=== PATIENT | female | born 1950 | race Caucasian/White ===

== ENCOUNTER → 2019-08-10 | Outpatient (CLI) | payer MEDICARE, OTHER | LOC: CARD 09:13 | PROVIDERS: ATTEND Allergy & Immunology | DX: R60.9 Edema, unspecified (principal) | CPT/HCPCS: 93306 ==

== ENCOUNTER 2021-08-19 13:07 | Emergency (ER) | payer MEDICARE, OTHER ==
[~2021-08-19] VITALS: Ht 167 cm; Wt 117.0 kg
--- NOTE | 2021-08-19 13:48 | ED Lower Extremity ---
General Chief Complaint: Lower Extremity Stated Complaint: FALL;R KNEE PAIN Nursing Triage Note: PT PRESENTS TO ED WITH COMPLAINTS OF R KNEE PAIN AFTER FALLING OUT OF BED YESTERDAY MORNING. Source: patient Exam Limitations: no limitations (KEVIN QUAN APRN) History of Present Illness Date Seen by Provider: Aug 19, 2021 Time Seen by Provider: 13:45 Initial Comments to ER by private vehicle with reports of posterior lateral right knee pain after she fell out of bed yesterday morning landing on the right knee. She has been able to bear weight minimally secondary to pain. Does not have a local physician. Onset: just prior to arrival Severity: moderate Pain/Injury Location: right knee Method of Injury: unknown Modifying Factors: Worse With Movement (KEVIN QUAN APRN) Allergies and Home Medications Patient Home Medication List Home Medication List Reviewed: Yes (KEVIN QUAN APRN) Hydrocodone/Acetaminophen (Hydrocodone-Acetamin 5-325 mg) 1 Each Tablet, 1 TAB PO Q4H PRN for PAIN-MODERATE (5-7) Prescribed by: KEVIN QUAN on 08/19/21 1431 Review of Systems Constitutional: see HPI EENTM: see HPI Respiratory: no symptoms reported Cardiovascular: no symptoms reported Genitourinary: no symptoms reported Musculoskeletal: see HPI Skin: no symptoms reported Psychiatric/Neurological: No Symptoms Reported (KEVIN QUAN APRN) Past Tkxhuxq-Erafyh-Wsunxd Hx Patient Social History Tobacco Use?: No Substance use?: No Alcohol Use?: No Pt feels they are or have been: No (KEVIN QUAN APRN) Immunizations Up To Date COVID19 Vaccine Orthodontic Band [employer]: [employer] (KEVIN QUAN APRN) Past Medical History Surgery/Hospitalization HX: PMH: HTN, DM-2, BREAST CA SX: STEM CELL TRANSPLANT, CERVICAL SPIN SX, MASTECTOMY, BREAST AUGMENTATION, L KNEE REPLACEMENT, R ARM SX. (KVEIN QUAN APRN) Physical Exam Vital Signs Vital Signs - First Documented 08/19/21 13:21 Temp 37.0 Pulse 73 Resp 18 B/P (MAP) 147/70 (95) Pulse Ox 94 (GIAN LEE MD) Vital Signs Capillary Refill : Less Than 3 Seconds (KEVIN QUAN APRN) Height, Weight, BMI Height: '" Weight: lbs. oz. kg; 41.00 BMI Method: General Appearance: WD/WN, no apparent distress HEENT: PERRL/EOMI, normal ENT inspection Neck: non-tender, full range of motion Cardiovascular: regular rate, rhythm, no murmur Respiratory: no respiratory distress, no accessory muscle use Gastrointestinal: normal bowel sounds, non tender, soft Hips: bilateral hip non-tender, bilateral hip normal inspection, bilateral hip normal range of motion Legs: bilateral leg non-tender, bilateral leg normal inspection, bilateral leg normal range of motion Knees: bilateral knee non-tender, bilateral knee normal inspection, bilateral knee normal range of motion; right knee other (Posterior lateral right knee tender to palpation. Body habitus would make it very difficult to assess for any swelling or deformity.) Ankles: bilateral ankle non-tender, bilateral ankle normal inspection, bilateral ankle normal range of motion Feet: bilateral foot non-tender, bilateral foot normal inspection, bilateral foot normal range of motion Neurologic/Tendon: normal sensation, normal motor functions Neurologic/Psychiatric: alert, normal mood/affect, oriented x 3 Skin: normal color, warm/dry (KEVIN QUAN APRN) Progress/Results/Core Measures Results/Orders Vital Signs/I&O 08/19/21 08/19/21 13:21 14:39 Temp 37.0 Pulse 73 70 Resp 18 18 B/P (MAP) 147/70 (95) 145/70 Pulse Ox 94 97 (GIAN LEE MD) Blood Pressure Mean: 95 Departure Impression Primary Impression: Internal derangement of knee Disposition: 01 HOME, SELF-CARE Condition: Critical Departure-Patient Inst. Decision time for Depature: 13:48 (KEVIN QUAN APRN) Referrals: NO,LOCAL PHYSICIAN (PCP) Primary Care Physician LAINE SINGH MD, TERRY D MD ZAFUTA,TRISTAN Kevin MD Patient Instructions: Internal Derangement of the Knee Add. Discharge Instructions: 1. If the pain persists into next week then call one of the orthopedic surgeons listed to make an appointment to be seen for follow-up. All discharge instructions reviewed with patient and/or family. Voiced understanding. Scripts Hydrocodone/Acetaminophen (Hydrocodone-Acetamin 5-325 mg) 1 Each Tablet 1 TAB PO Q4H PRN for PAIN-MODERATE (5-7), #10 TAB Prov: KEVIN QUAN APRN 08/19/21 ATTENDING PHYSICIAN NOTE: I was physically present as attending physician in the emergency department during the care of this patient, but I was not directly involved in the decision making or delivery of care for this patient. (GIAN LEE MD) KEVIN QUAN APRN Aug 19, 2021 13:48 GIAN LEE MD Aug 21, 2021 12:20
--- NOTE | 2021-08-19 14:24 | Diagnostic Imaging Report ---
INDICATION: Fall, right knee pain 3 views of the right knee show advanced tricompartmental degenerative changes present with narrowing and spurring of all 3 compartments but is most pronounced at the patellofemoral compartment. No fracture, dislocation or other acute bony abnormality is evident. IMPRESSION: There are degenerative changes present with no acute abnormality seen. Dictated by: Dictated on workstation # [id number]
[2021-08-19] MEDS ORDERED: ACHD5005 PO (14:31)
[2021-08-19 14:39] VITALS: BP 145/70
== END 2021-08-19 14:39 | disposition home or self-care (01) ==
LOC: EDUNIT# 13:07 → ER 13:09
DX: M23.91 Unspecified internal derangement of right knee (principal); I10 Essential (primary) hypertension; E11.9 Type 2 diabetes mellitus without complications
CPT/HCPCS: 73562